=== PATIENT | male | born 1950 ===

== ENCOUNTER → 2021-02-05 15:00 | Outpatient (CLI) | payer OTHER ==
[~2021-02-05 15:00] MED LIST: ACTIGALL300 MG PO; ALDACTONE50 MG PO; AMILORIDE HCL5 MG PO; CEPHULAC10 G/15 ML PO; LASIX20 MG PO; PROPRANOLOL 20 MG; VITAMIN K100 MCG PO
== END | disposition home or self-care (01) ==
LOC: PPH VACUNA 15:00
DX: Z23 Encounter for immunization (principal)

== ENCOUNTER 2021-10-12 08:00 | Outpatient (CLI) | payer OTHER | END 2021-10-12 08:30 | disposition home or self-care (01) | LOC: PPH VACUNA 08:00 | PROVIDERS: ATTEND Emergency Medicine Pediatric Emergency Medicine | DX: Z23 Encounter for immunization (principal) ==